=== PATIENT | female | born 1995 | race Caucasian/White ===

== ENCOUNTER 2019-08-16 12:24 | Emergency (ER) | payer SELFPAY ==
--- NOTE | 2019-08-16 12:30 | EDM.PDOC ---
ED HPI GENERAL MEDICAL PROBLEM - General Chief Complaint: Genitourinary Problem Stated Complaint: KIDNEY Time Seen by Provider: 08/16/19 12:25 Source of Information: Reports: Patient History Limitations: Reports: No Limitations - History of Present Illness INITIAL COMMENTS - FREE TEXT/NARRATIVE: HISTORY AND PHYSICAL: History of present illness: Patient is a 24-year-old female who presents to the emergency room today with complaints of left flank pain and dysuria. She states there is a chance of . Denies any vaginal bleeding, discharge or concerns of STDs. Patient denies any fever, chills, headache, change in vision, syncope or near syncope. Denies any chest pain, back pain, shortness of breath or cough. Denies any abdominal pain, nausea, vomiting, diarrhea, or constipation. Has not noted any blood in urine or stool. Patient has been eating and drinking appropriately. Review of systems: As per history of present illness and below otherwise all systems reviewed and negative. Past medical history: As per history of present illness and as reviewed below otherwise noncontributory. Surgical history: As per history of present illness and as reviewed below otherwise noncontributory. Social history: See social history for further information Family history: As per history of present illness and as reviewed below otherwise noncontributory. Physical exam: General: Well-developed and well-nourished 24-year-old female. Alert and oriented. Nontoxic appearing and in no acute distress. HEENT: Atraumatic, normocephalic, pupils equal and reactive bilaterally, negative for conjunctival pallor or scleral icterus, mucous membranes moist, trachea midline. No drooling or trismus noted. No meningeal signs. No hot potato voice noted. Lungs: Clear to auscultation, breath sounds equal bilaterally, chest nontender. Heart: S1S2, regular rate and rhythm without overt murmur Abdomen: Soft, nondistended, nontender. Negative for masses or hepatosplenomegaly. Mild left-sided costovertebral tenderness. Pelvis: Stable nontender. Skin: Intact, warm, dry. No lesions or rashes noted. Extremities: Atraumatic, moves all extremities per self without difficulty or deficits, ambulatory. Neurovascular unremarkable. Neuro: Awake, alert, oriented. Cranial nerves II through XII unremarkable. Cerebellum unremarkable. Motor and sensory unremarkable throughout. Exam nonfocal. Notes: Patient urine is normal. Due to her symptoms and dysuria we'll give her a short course of Cipro. Encouraged her to follow-up with her primary care provider for further evaluation and management if discomfort continues. Supportive care measures were reviewed and discussed. Voices understanding and is agreeable to plan of care. Denies any further questions or concerns at this time. Diagnostics: UA, hCG U Therapeutics: None Prescription: Cipro 250 BID x 3 days Impression: Dysuria Plan: 1. Please use Tylenol and/or Ibuprofen as needed for pain and fever management. 2. Get plenty of Rest. Encourage fluids to prevent dehydration. 3. Please follow up with your primary care provider. Return to the ED as needed as discussed. Definitive disposition and diagnosis as appropriate pending reevaluation and review of above. left side Pain Score (Numeric/FACES): 3 - Related Data Allergies Allergy/AdvReac Type Severity Reaction Status Date / Time adhesive Allergy Blisters Verified 05/26/17 18:37 MDT BANDAIDES Allergy Severe Burning Uncoded 05/26/17 18:37 MDT Home Meds: Home Meds Ciprofloxacin HCl [Cipro] 250 mg PO BID 3 Days #6 tablet 08/16/19 [Rx] Phenazopyridine HCl [Pyridium] 100 mg PO TID 2 Days #6 tablet 08/16/19 [Rx] Past Medical History - Past Health History Medical/Surgical History: Denies Medical/Surgical History HEENT History: Reports: Hard of Hearing, Other (See Below) Other HEENT History: right ear drum ruptured. 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 ED EXAM, RENAL/ - Physical Exam Exam: See Below (See dictation) Course - Vital Signs Last Recorded V/S: Last Vital Signs Temp 96.3 F 12/26/19 12:30 Pulse 87 08/16/19 12:30 Resp 16 08/16/19 12:30 BP 126/81 08/16/19 12:30 Pulse Ox 95 08/16/19 12:30 - Orders/Labs/Meds Labs: Laboratory Tests 08/16/19 08/16/19 Range/Units 12:30 12:30 Urine Color YELLOW Urine Appearance CLEAR Urine pH 6.5 (5.0-8.0) Ur Specific [place] 1.010 (1.001-1.035) Urine Protein NEGATIVE (NEGATIVE) mg/dL Urine Glucose (UA) NEGATIVE (NEGATIVE) mg/dL Urine Ketones NEGATIVE (NEGATIVE) mg/dL Urine Occult Blood NEGATIVE (NEGATIVE) Urine Nitrite NEGATIVE (NEGATIVE) Urine Bilirubin NEGATIVE (NEGATIVE) Urine Urobilinogen 0.2 (<2.0) EU/dL Ur Leukocyte Esterase NEGATIVE (NEGATIVE) Urine HCG, Qual NEGATIVE (NEGATIVE) Departure - Departure Time of Disposition: 13:06 Disposition: Home, Self-Care 01 Clinical Impression: Dysuria - Discharge Information Prescriptions: Ciprofloxacin HCl [Cipro] 250 mg PO BID 3 Days #6 tablet Phenazopyridine HCl [Pyridium] 100 mg PO TID 2 Days #6 tablet Instructions: Dysuria Forms: ED Department Discharge Additional Instructions: The following information is given to patients seen in the emergency department who are being discharged to home. This information is to outline your options for follow-up care. We provide all patients seen in our emergency department with a follow-up referral. The need for follow-up, as well as the timing and circumstances, are variable depending upon the specifics of your emergency department visit. If you don't have a primary care physician on staff, we will provide you with a referral. We always advise you to contact your personal physician following an emergency department visit to inform them of the circumstance of the visit and for follow-up with them and/or the need for any referrals to a consulting specialist. The emergency department will also refer you to a specialist when appropriate. This referral assures that you have the opportunity for follow-up care with a specialist. All of these measure are taken in an effort to provide you with optimal care, which includes your follow-up. Under all circumstances we always encourage you to contact your private physician who remains a resource for coordinating your care. When calling for follow-up care, please make the office aware that this follow-up is from your recent emergency room visit. If for any reason you are refused follow-up, please contact the [facility] Emergency Department at and asked to speak to the emergency department charge nurse. [facility] Primary Care [address] [place] [address] [facility] [address] [place] [id number] 1. Please use Tylenol and/or Ibuprofen as needed for pain and fever management. 2. Get plenty of Rest. Encourage fluids to prevent dehydration. 3. Please follow up with your primary care provider. Return to the ED as needed as discussed. Sepsis Event Note - Focused Exam Vital Signs: Vital Signs Temp Pulse Resp BP Pulse Ox 08/16/19 12:30 96.3 F 87 16 126/81 95 Date Exam was Performed: 08/16/19 Time Exam was Performed: 13:04
[2019-08-16 12:34] VITALS: BP 126/81
[2019-08-16 13:37] VITALS: PULSE 85
== END 2019-08-16 13:36 | disposition home or self-care (01) ==
LOC: MW.ED 12:24
DX: R30.0 Dysuria (principal); Z91.048 Other nonmedicinal substance allergy status
CPT/HCPCS: 81003; 81025; 99283; 99284

== ENCOUNTER 2020-04-27 12:49 | Emergency (ER) | payer MEDICAID, OTHER ==
[2020-04-27 13:14] VITALS: BP 118/75; PULSE 76
--- NOTE | 2020-04-27 13:38 | EDM.PDOC ---
ED HPI GENERAL MEDICAL PROBLEM - General Chief Complaint: Respiratory Problem Stated Complaint: SHORTNESS OF BREATH Time Seen by Provider: 04/27/20 12:57 Source of Information: Reports: Patient History Limitations: Reports: No Limitations - History of Present Illness INITIAL COMMENTS - FREE TEXT/NARRATIVE: HISTORY AND PHYSICAL: History of present illness: Patient is a 24-year-old female who presents to the emergency room with her daughter with complaints of body aches, sore throat, cough and subjective fever x2 days. Mom states she is concerned that she and her daughter have COVID-19, as the child recently returned to school and the mother has been around people at work who she feels have been infected. Patient denies any headache, change in vision, syncope or near syncope. Denies any chest pain, back pain, shortness of breath, abdominal pain, nausea, vomiting, diarrhea, constipation or dysuria. Patient has been eating and drinking appropriately. Review of systems: As per history of present illness and below otherwise all systems reviewed and negative. Past medical history: As per history of present illness and as reviewed below otherwise noncontributory. Surgical history: As per history of present illness and as reviewed below otherwise noncontributory. Social history: See social history for further information Family history: As per history of present illness and as reviewed below otherwise noncontributory. Physical exam: General: Well developed and well nourished 24 year old female. Alert and orientated x 3. Nontoxic in appearance and in no acute distress. Vital signs are stable and have been reviewed by me. Nursing notes were reviewed. HEENT: Atraumatic, normocephalic, pupils equal and reactive bilaterally, negative for conjunctival pallor or scleral icterus, mucous membranes moist, TMs normal bilaterally, throat clear, neck supple, nontender, trachea midline. No drooling or trismus noted. No meningeal signs. No hot potato voice noted. Lungs: Clear to auscultation, breath sounds equal bilaterally, chest nontender. Normal work of breathing, no accessory muscles used. Heart: S1S2, regular rate and rhythm without overt murmur Abdomen: Soft, nondistended, nontender. Skin: Intact, warm, dry. No lesions or rashes noted. Hematologic: No petechiae or purpra. Mucosa appropriate color and normal nail bed color and refill. Extremities: Atraumatic, moves all extremities per self without difficulty or deficits, negative for cords or calf pain. Neurovascular unremarkable. Neuro: Awake, alert, oriented. Cranial nerves II through XII unremarkable. Cerebellum unremarkable. Motor and sensory unremarkable throughout. Exam nonfocal. Notes: Negative COVID screening. Upon reevaluation she is appropriate for discharge. Vital signs are stable. We discussed signs and symptoms that would prompt them to return to the Emergency Department. Medication, follow up and supportive care measures were reviewed and discussed. Voices understanding and is agreeable to plan of care. Denies any further questions or concerns at this time. Diagnostics: COVID Therapeutics: None Prescription: None Impression: Viral upper respiratory illness Plan: 1. Your COVID testing is negative. Please use Tylenol and/or Ibuprofen as needed for pain and fever management. 2. Get plenty of Rest. Encourage fluids to prevent dehydration. 3. Please follow up with your primary care provider. Return to the ED as needed as discussed. Definitive disposition and diagnosis as appropriate pending reevaluation and review of above. Throat Pain Score (Numeric/FACES): 3 - Related Data Allergies Allergy/AdvReac Type Severity Reaction Status Date / Time adhesive Allergy Blisters Verified 04/27/20 13:05 BANDAIDES Allergy Severe Burning Uncoded 04/27/20 13:05 Home Meds: Home Meds . [No Known Home Meds] 04/27/20 [History] Past Medical History - Past Health History Medical/Surgical History: Denies Medical/Surgical History HEENT History: Reports: Hard of Hearing, Other (See Below) Other HEENT History: right ear drum ruptured. 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 ED EXAM, GENERAL - Physical Exam Exam: See Below (See dictation) Course - Vital Signs Last Recorded V/S: Last Vital Signs Temp 97.7 F 04/27/20 13:06 Pulse 76 04/27/20 13:06 Resp 16 04/27/20 13:06 BP 118/75 04/27/20 13:06 Pulse Ox 98 04/27/20 13:06 - Orders/Labs/Meds Labs: Laboratory Tests 04/27/20 Range/Units 13:16 COVID-19 (ALANNA) NEGATIVE (NEGATIVE) Departure - Departure Time of Disposition: 14:03 Disposition: Home, Self-Care 01 Clinical Impression: Viral upper respiratory illness - Discharge Information Instructions: Upper Respiratory Infection, Adult, [id number] Referrals: PCP,None [Primary Care Provider] - Forms: ED Department Discharge Additional Instructions: The following information is given to patients seen in the emergency department who are being discharged to home. This information is to outline your options for follow-up care. We provide all patients seen in our emergency department with a follow-up referral. The need for follow-up, as well as the timing and circumstances, are variable depending upon the specifics of your emergency department visit. If you don't have a primary care physician on staff, we will provide you with a referral. We always advise you to contact your personal physician following an emergency department visit to inform them of the circumstance of the visit and for follow-up with them and/or the need for any referrals to a consulting specialist. The emergency department will also refer you to a specialist when appropriate. This referral assures that you have the opportunity for follow-up care with a specialist. All of these measure are taken in an effort to provide you with optimal care, which includes your follow-up. Under all circumstances we always encourage you to contact your private physician who remains a resource for coordinating your care. When calling for follow-up care, please make the office aware that this follow-up is from your recent emergency room visit. If for any reason you are refused follow-up, please contact the [facility] Emergency Department at and asked to speak to the emergency department charge nurse. [facility] Primary Care [address] [place] [id number] [facility] [address] [place] [address] Thank you for choosing the [facility] emergency department in [place] for your medical needs today. It was a pleasure caring for you. Today you were seen in the emergency department for viral illness. 1. Your COVID testing is negative. Please use Tylenol and/or Ibuprofen as needed for pain and fever management. 2. Get plenty of Rest. Encourage fluids to prevent dehydration. 3. Please follow up with your primary care provider. Return to the ED as needed as discussed. Sepsis Event Note (ED) - Evaluation Sepsis Screening Result: No Definite Risk - Focused Exam Vital Signs: Vital Signs Temp Pulse Resp BP Pulse Ox 04/27/20 13:06 97.7 F 76 16 118/75 98
== END 2020-04-27 14:28 | disposition home or self-care (01) ==
LOC: MW.ED 12:49
DX: J06.9 Acute upper respiratory infection, unspecified (principal); Z20.828 Contact with and (suspected) exposure to other viral communicable diseases; Z91.048 Other nonmedicinal substance allergy status
CPT/HCPCS: 99283; U0002

== ENCOUNTER 2020-08-30 12:53 | Emergency (ER) | payer MEDICAID ==
--- NOTE | 2020-08-30 13:32 | EDM.PDOC ---
ED HPI GENERAL MEDICAL PROBLEM - General Chief Complaint: Chest Pain Stated Complaint: CHEST PAIN Time Seen by Provider: 08/30/20 12:56 Source of Information: Reports: Patient History Limitations: Reports: No Limitations - History of Present Illness INITIAL COMMENTS - FREE TEXT/NARRATIVE: Patient is a 25-year-old female who presents today for left-sided chest pain for the past 2 days. Patient states is kind of achy pain and radiates to her left arm. Patient has a pain started as she has caffeine and drinks more throughout the day. Nothing makes the pain better. Patient not take any medication for the pain at home. Patient denies any nausea vomiting shortness of breath or leg swelling. Patient denies any recent travels or any previous cardiac issues. Left chest Pain Score (Numeric/FACES): 6 - Related Data Allergies Allergy/AdvReac Type Severity Reaction Status Date / Time adhesive Allergy Blisters Verified 08/30/20 13:13 BANDAIDES Allergy Severe Burning Uncoded 08/30/20 13:13 Home Meds: Home Meds . [No Known Home Meds] 04/27/20 [History] Past Medical History - Past Health History Medical/Surgical History: Denies Medical/Surgical History HEENT History: Reports: Hard of Hearing, Other (See Below) Other HEENT History: right ear drum ruptured. 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: vaginal delliveries Psychiatric History: Reports: Anxiety, Depression - Infectious Disease History Infectious Disease History: Reports: None - Past Surgical History HEENT Surgical History: Reports: Oral Surgery GI Surgical History: Reports: None - History Comment History Comment: celexa- but hasn't had in 1-2 weeks Social & Family History - Family History Family Medical History: No Pertinent Family History - Tobacco Use Tobacco Use Status *Q: Never Tobacco User - Caffeine Use Caffeine Use: Reports: Energy Drinks Other Caffeine Use: 1 drink per day of coffee or redbull - Recreational Drug Use Recreational Drug Use: No ED ROS GENERAL - Review of Systems Review Of Systems: See Below Constitutional: Reports: No Symptoms HEENT: Reports: No Symptoms Respiratory: Reports: No Symptoms Cardiovascular: Reports: No Symptoms Endocrine: Reports: No Symptoms GI/Abdominal: Reports: No Symptoms : Reports: No Symptoms Musculoskeletal: Reports: No Symptoms Skin: Reports: No Symptoms Neurological: Reports: No Symptoms Psychiatric: Reports: No Symptoms Hematologic/Lymphatic: Reports: No Symptoms Immunologic: Reports: No Symptoms ED EXAM, GENERAL - Physical Exam Exam: See Below Exam Limited By: No Limitations General Appearance: Alert, WD/WN, No Apparent Distress Eye Exam: Bilateral Eye: EOMI, PERRL Head: Atraumatic Neck: Supple Respiratory/Chest: No Respiratory Distress, Lungs Clear, Normal Breath Sounds Cardiovascular: Regular Rate, Rhythm GI/Abdominal: Normal Bowel Sounds, Soft, Non-Tender Back Exam: Normal Inspection, Full Range of Motion Neurological: Alert, Oriented, CN II-XII Intact #1 Interpretation EKG Date: 08/30/20 Time: 13:07 Rhythm: NSR Rate (Beats/Min): 86 ST-T: Normal Course - Vital Signs Last Recorded V/S: Last Vital Signs Temp 97.1 F 08/30/20 13:14 Pulse 70 08/30/20 14:14 Resp 16 08/30/20 14:14 BP 109/75 08/30/20 14:14 Pulse Ox 95 08/30/20 14:14 - Orders/Labs/Meds Orders: Active Orders 24 hr Category Date Time Status EKG Documentation Completion [RC] STAT Care 08/30/20 13:15 Active Labs: Laboratory Tests 08/30/20 08/30/20 08/30/20 Range/Units 13:19 13:19 13:45 WBC 9.42 (4.0-11.0) K/uL RBC 4.64 (4.30-5.90) M/uL Hgb 14.0 (12.0-16.0) g/dL Hct 42.3 (36.0-46.0) % MCV 91.2 (80.0-98.0) fL MCH 30.2 (27.0-32.0) pg MCHC 33.1 (31.0-37.0) g/dL RDW Std Deviation 42.3 (28.0-62.0) fl RDW Coeff of Matt 13 (11.0-15.0) % Plt Count 279 (150-400) K/uL MPV 10.80 (7.40-12.00) fL Neut % (Auto) 52.4 (48.0-80.0) % Lymph % (Auto) 38.5 (16.0-40.0) % Cross % (Auto) 7.0 (0.0-15.0) % Eos % (Auto) 1.7 (0.0-7.0) % Baso % (Auto) 0.4 (0.0-1.5) % Neut # (Auto) 4.9 (1.4-5.7) K/uL Lymph # (Auto) 3.6 H (0.6-2.4) K/uL Cross # (Auto) 0.7 (0.0-0.8) K/uL Eos # (Auto) 0.2 (0.0-0.7) K/uL Baso # (Auto) 0.0 (0.0-0.1) K/uL Nucleated RBC % 0.0 /100WBC Nucleated RBCs # 0 K/uL Sodium 141 (136-145) mmol/L Potassium 4.0 (3.5-5.1) mmol/L Chloride 105 (98-107) mmol/L Carbon Dioxide 26.7 (21.0-32.0) mmol/L BUN 12 (7.0-18.0) mg/dL Creatinine 0.8 (0.6-1.0) mg/dL Est Cr Clr Drug Dosing 79.71 mL/min Estimated GFR (MDRD) > 60.0 ml/min Glucose 82 (74-106) mg/dL Calcium 8.9 (8.5-10.1) mg/dL Creatine Kinase 129 (26-308) U/L Troponin I < 0.050 (0.000-0.056) ng/mL Urine HCG, Qual NEGATIVE (NEGATIVE) - Re-Assessments/Exams Free Text/Narrative Re-Assessment/Exam: 08/30/20 14:20 trops are negative likely muscle skeletal pain will be discharged home to follow-up with primary care physician. Departure - Departure Time of Disposition: 14:21 Disposition: Home, Self-Care 01 Condition: Good Clinical Impression: Chest pain - Discharge Information *PRESCRIPTION DRUG MONITORING PROGRAM REVIEWED*: Not Applicable *COPY OF PRESCRIPTION DRUG MONITORING REPORT IN PATIENT LAURA: Not Applicable Instructions: Nonspecific Chest Pain, Adult Referrals: PCP,None [Primary Care Provider] - Forms: ED Department Discharge Additional Instructions: The following information is given to patients seen in the emergency department who are being discharged to home. This information is to outline your options for follow-up care. We provide all patients seen in our emergency department with a follow-up referral. The need for follow-up, as well as the timing and circumstances, are variable depending upon the specifics of your emergency department visit. If you don't have a primary care physician on staff, we will provide you with a referral. We always advise you to contact your personal physician following an emergency department visit to inform them of the circumstance of the visit and for follow-up with them and/or the need for any referrals to a consulting specialist. The emergency department will also refer you to a specialist when appropriate. This referral assures that you have the opportunity for follow-up care with a specialist. All of these measure are taken in an effort to provide you with opti mal care, which includes your follow-up. Under all circumstances we always encourage you to contact your private physician who remains a resource for coordinating your care. When calling for follow-up care, please make the office aware that this follow-up is from your recent emergency room visit. If for any reason you are refused follow-up, please contact the [facility] Emergency Department at and asked to speak to the emergency department charge nurse. Please follow up with your primary care physician. If you do not have a primary care physician, see below: [facility] Primary Care [address] [place] [id number] [facility] [address] [place] [address] [facility] [address] [place] [id number] You likely have muscle skeletal pain. We would like you to follow-up with primary care physician and possibly see cardiology we have provided both numbers above. Any more increased pain shortness of breath please return to ED. Sepsis Event Note (ED) - Evaluation Sepsis Screening Result: No Definite Risk - Focused Exam Vital Signs: Vital Signs Temp Pulse Resp BP Pulse Ox 08/30/20 14:14 70 16 109/75 95 08/30/20 13:14 97.1 F 88 18 138/78 97 - My Orders Last 24 Hours: My Active Orders 08/30/20 13:15 EKG Documentation Completion [RC] STAT - Assessment/Plan Last 24 Hours: My Active Orders 08/30/20 13:15 EKG Documentation Completion [RC] STAT Assessment:: 25-year-old female presents today for left-sided chest pain. Patient has a heart score of 0. Will obtain tropes EKG labs and reassess. Likely be muscular pain.
[2020-08-30 13:46] LABS: BLOOD UREA NITROGEN,BUN 12 mg/dL (7.0-18.0); CARBON DIOXIDE,CO2 26.7 mmol/L (21.0-32.0); CHLORIDE,CL 105 mmol/L (98-107); GLUCOSE RANDOM 82 mg/dL (74-106); SODIUM,NA 141 mmol/L (136-145)
--- NOTE | 2020-08-30 15:00 | CR ---
Indication: Left-sided chest pain. Technique: PA and lateral views of the chest. Comparison: None Findings: The heart is normal in size. The lungs are clear. No infiltrate, pleural effusion, or pneumothorax is identified. Impression: No acute cardiopulmonary process Dictated by Mariaa Issa MD @ Aug 30 2020 2:58PM Signed by Dr. Mariaa Issa @ Aug 30 2020 2:59PM
[2020-08-30 15:21] VITALS: BP 117/69; PULSE 81
== END 2020-08-30 15:15 | disposition home or self-care (01) ==
LOC: MW.ED 12:53
DX: R07.9 Chest pain, unspecified (principal); Z88.8 Allergy status to other drugs, medicaments and biological substances
CPT/HCPCS: 36415; 71046; 71046-26; 80048; 81025; 82550; 84484; 85025; 93005; 93010; 99284; 99285-25

== ENCOUNTER 2020-11-17 11:20 | Emergency (ER) | payer MEDICAID ==
[2020-11-17 11:42] VITALS: BP 144/78; PULSE 100
[2020-11-17] MEDS ORDERED: Acetaminophen 500 MG Tab PO ONE (12:14)
--- NOTE | 2020-11-17 12:16 | EDM.PDOC ---
ED HPI GENERAL MEDICAL PROBLEM - General Chief Complaint: ENT Problem Stated Complaint: RT SIDE OF NECK PAIN Time Seen by Provider: 11/17/20 11:23 - History of Present Illness INITIAL COMMENTS - FREE TEXT/NARRATIVE: CHIEF COMPLAINT(S): Right ear and jaw pain HISTORY OF PRESENT ILLNESS: This is a 25-year-old woman with a past medical history of obesity who comes to the emergency department with a chief complaint of right ear and jaw pain. The patient states that 2 weeks ago she got her left molar removed and had resultant dry socket and was started on amoxicillin. She states that for the last 2 days she has been experiencing right ear and jaw pain. She states that her pain is rated 6 out of 10 is located just in her right ear and her job right anterior to the ear. She states that she feels there is mild swelling but denies any trouble swallowing, trouble speaking, or drooling. She states that initially started with a right ear tickle and then she cleaned it and then she did just started to have pain in the right side. She describes the pain as throbbing. She states that she has been taking ibuprofen and amoxicillin as prescribed. She denies any fever, chills, vision changes, diplopia, loss of vision or dizziness. She states she does not know the dose of her amoxicillin but she is taking approximately 5 to 8 tablets of ibuprofen every 3-4 hours. In addition she states that when she opens her mouth she feels a clicking and popping out of her right jaw. She denies any history of TMJ. REVIEW OF SYSTEMS: Constitutional: Denies fever, chills. Eyes: Denies eye pain Ears, Nose, Mouth, & Throat: Positive for right ear and right jaw pain Cardiovascular: Denies chest pain Respiratory: Denies shortness of breath Gastrointestinal: Denies Nausea, vomiting, diarrhea, hematochezia. Genitourinary: Denies hematuria Skin:Denies a rash MSK: Denies joint pain Neurological: Denies blurred vision Psychiatric: Denies depression PAST MEDICAL HISTORY: As per history of present illness and as reviewed below otherwise noncontributory. SURGICAL HISTORY: As per history of present illness and as reviewed below otherwise noncontributory. SOCIAL HISTORY: As per history of present illness and as reviewed below otherwise noncontributory. FAMILY HISTORY: As per history of present illness and as reviewed below otherwise noncontributory. EXAMINATION OF ORGAN SYSTEMS/BODY AREAS: Constitutional: Blood pressure is 144/78, heart rate 100, respiratory rate 18 with an oxygen saturation 97% on room air. Temperature 37.1 General: Overall well-appearing woman who is in no acute distress. Psychiatric: Appropriate mood and affect. Eyes: No scleral icterus or conjunctival erythema pupils are equal round reactive to light. Extraocular movements intact. ENMT: Moist mucous membranes. No pharyngeal erythema there was no gum swelling or erythema in the oropharynx. Uvula was midline. No drooling. No trismus. The right tympanic membrane is bulging with erythema and effusion. The external auditory canal is mildly erythematous with some papules. No purulent drainage noted. There is no posterior auricular swelling or tenderness. No mastoid tenderness. There is mild tenderness along the anterior portion of the right ear along the TMJ joint. Cardiovascular: Regular, rate, and rhythm. No gallops, murmurs, or rubs. Bilateral upper extremity pulses symmetric and intact. No peripheral edema. No JVD. Respiratory: Lungs clear to auscultation bilaterally. No wheezes, rales, or rhonchi. Gastrointestinal: Soft, non-tender, non-distended. Normoactive bowel sounds Genitourinary: No suprapubic tenderness Musculoskeletal: Normal range of motion. Skin: No lesions or abrasions. Neurological: Alert, GCS 15 MEDICAL DECISION MAKING AND COURSE IN THE ED WITH INTERPRETATION/REVIEW OF DIAGNOSTIC STUDIES: This is a 25-year-old woman with a past medical history of obesity who comes to the emergency department with right ear pain and jaw pain who is on amoxicillin taking excessive doses of ibuprofen. At this time I do believe the patient has otitis externa and otitis media. I discussed with her that I be providing her with amoxicillin clavulanic acid and ofloxacin drops. I discussed with her for pain management I would like to provide her a Toradol shot. She states that she does not like shots and is okay with her pain. I did offer her Tylenol. She was amenable to Tylenol. I discussed with her that taking excess is doses of ibuprofen is not going to help the pain and only likely going to cause ulcers and GI upset. I did discuss with her a pain regimen plan. She is to follow-up with the primary care physician. I do not believe any labs or imaging are indicated at this time. DISPOSITION: The patient was discharged home in stable condition. The patient will follow up with primary care physician within 1 week CONDITION: Fair PROCEDURES: None FINAL IMPRESSION(S)/DIAGNOSES: 1. Acute right otitis media with effusion 2. Acute right otitis externa 3. Acute likely TMJ syndrome Saad Ivan M.D. right ear/right side of neck Pain Score (Numeric/FACES): 6 - Related Data Allergies Allergy/AdvReac Type Severity Reaction Status Date / Time adhesive Allergy Blisters Verified 11/17/20 11:38 BANDAIDES Allergy Severe Burning Uncoded 11/17/20 11:38 Home Meds: Home Meds Amoxicillin mg PO TID 11/17/20 [History] Amoxicillin/Potassium Clav [Amox Tr-K Clv 875-125 mg Tab] 1 each PO BID #14 tablet 11/17/20 [Rx] Ibuprofen 1,000 mg PO ASDIRECTED PRN 11/17/20 [History] Ofloxacin 10 ml OT DAILY #70 drops 11/17/20 [Rx] Past Medical History - Past Health History Medical/Surgical History: Denies Medical/Surgical History HEENT History: Reports: Hard of Hearing, Other (See Below) Other HEENT History: right ear drum ruptured. Cardiovascular History: Reports: None Respiratory History: Reports: None Gastrointestinal History: Reports: GERD CLERICAL DENTIST ASSISTANT History: Reports: Other CLERICAL DENTIST ASSISTANT History: vaginal delliveries Psychiatric History: Reports: Anxiety, Depression - Infectious Disease History Infectious Disease History: Reports: Chicken Pox - Past Surgical History HEENT Surgical History: Reports: Oral Surgery GI Surgical History: Reports: None - History Comment History Comment: celexa- but hasn't had in 1-2 weeks Social & Family History - Family History Family Medical History: No Pertinent Family History - Tobacco Use Tobacco Use Status *Q: Current Every Day Tobacco User Years of Tobacco use: 5 Packs/Tins Daily: 1 - Caffeine Use Caffeine Use: Reports: Energy Drinks, Tea Other Caffeine Use: 1 drink per day of coffee or redbull - Recreational Drug Use Recreational Drug Use: No ED ROS GENERAL - Review of Systems Review Of Systems: See Below ED EXAM, GENERAL - Physical Exam Exam: See Below Course - Vital Signs Last Recorded V/S: Last Vital Signs Temp 37.1 C 11/17/20 11:39 Pulse 100 11/17/20 11:39 Resp 18 11/17/20 11:39 BP 144/78 H 11/17/20 11:39 Pulse Ox 97 11/17/20 11:39 - Orders/Labs/Meds Meds: Medications Discontinued Medications Generic Name Dose Route Start Last Admin Trade Name [place] PRN Reason Stop Dose Admin Acetaminophen 1,000 mg 11/17/20 12:14 11/17/20 12:27 Acetaminophen 500 Mg Tab PO 11/17/20 12:15 1,000 mg ONETIME ONE Administration Departure - Departure Time of Disposition: 12:14 Disposition: Home, Self-Care 01 Condition: Fair Clinical Impression: Otitis externa, Otitis media, TMJ (temporomandibular joint syndrome) - Discharge Information *PRESCRIPTION DRUG MONITORING PROGRAM REVIEWED*: No *COPY OF PRESCRIPTION DRUG MONITORING REPORT IN PATIENT LAURA: No Prescriptions: Amoxicillin/Potassium Clav [Amox Tr-K Clv 875-125 mg Tab] 1 each PO BID #14 tablet Ofloxacin 10 ml OT DAILY #70 drops Instructions: Otitis Externa, [id number], Otitis Media, Adult, [id number], Temporomandibular Joint Syndrome Referrals: PCP,None [Primary Care Provider] - Forms: ED Department Discharge Additional Instructions: You evaluate today on an emergent basis. At this time you do have evidence of an infection of your ear and your ear canal. Please use the antibiotics as prescribed. In addition you may have additional symptoms from TMJ syndrome. I recommend the use of Tylenol and Motrin for pain relief. Please ice the area 20 minutes 4 times a day. Please do not exceed 800 mg 3 times a day of Motrin as this can cause stomach ulcers. Please utilize the pain plan as below. Please follow-up with your primary care physician within 3 to 5 days. Return for any new or worsening symptoms such as trouble swallowing, drooling, inability to open mouth, fever or worsening swelling of the right side of the neck. Please use: Tylenol 500-1000mg every 6 hours (DO NOT TAKE MORE THAN 4000mg in 1 day) Ibuprofen 400mg every 6 hours (Take with food as it can cause ulcers, GI upset) Example schedule: 8:00 AM (Tylenol 500-1000mg) 11:00 AM (Ibuprofen 400mg) 2:00 PM (Tylenol 500-1000mg) 5:00 PM (Ibuprofen 400mg) Ice the area 20 minutes 4 times per day [facility] [address] [place] [address] [facility] [address] [place] [address] The patient is informed of any results of their evaluation and diagnostic workup and all questions are answered. They are given discharge instructions and return precautions. The patient is stable for discharge. The patient states they understand and agree with the plan and that they will return if their symptoms get worse or if they have any new concerns. The following information is given to patients seen in the emergency department who are being discharged to home. This information is to outline your options for follow-up care. We provide all patients seen in our emergency department with a follow-up referral. The need for follow-up, as well as the timing and circumstances, are variable depending upon the specifics of your emergency department visit. If you don't have a primary care physician on staff, we will provide you with a referral. We always advise you to contact your personal physician following an emergency department visit to inform them of the circumstance of the visit and for follow-up with them and/or the need for any referrals to a consulting specialist. The emergency department will also refer you to a specialist when appropriate. This referral assures that you have the opportunity for follow-up care with a specialist. All of these measure are taken in an effort to provide you with optimal care, which includes your follow-up. Under all circumstances we always encourage you to contact your private physician who remains a resource for coordinating your care. When calling for follow-up care, please make the office aware that this follow-up is from your recent emergency room visit. If for any reason you are refused follow-up, please contact the Emergency Department at and asked to speak to the emergency department charge nurse. Sepsis Event Note (ED) - Evaluation Sepsis Screening Result: No Definite Risk
== END 2020-11-17 12:29 | disposition home or self-care (01) ==
LOC: MW.ED 11:20
DX: H65.191 Other acute nonsuppurative otitis media, right ear (principal); H60.501 Unspecified acute noninfective otitis externa, right ear; M26.621 Arthralgia of right temporomandibular joint; Z72.0 Tobacco use; Z91.048 Other nonmedicinal substance allergy status
CPT/HCPCS: 99283; A9270

== ENCOUNTER 2022-04-20 13:57 | Emergency (ER) | payer MEDICAID ==
[2022-04-20 15:40] VITALS: BP 128/97; PULSE 91
== END 2022-04-20 17:29 | disposition home or self-care (01) ==
LOC: MW.ED 13:57
DX: J02.9 Acute pharyngitis, unspecified (principal); Z20.822 Contact with and (suspected) exposure to COVID-19; Z91.048 Other nonmedicinal substance allergy status
CPT/HCPCS: 87651-QW; 99283; U0002

== ENCOUNTER 2022-04-21 16:58 | Emergency (ER) | payer MEDICAID ==
[2022-04-21] MEDS ORDERED: Acetaminophen 500 MG Tab PO ONE (18:10)
[2022-04-21] MEDS ORDERED: Sodium Chloride 0.9% 1,000 ML IV ONE (18:10)
[2022-04-21] MEDS ORDERED: Albuterol/Ipratropium 3.0-0.5 MG/3 ML Neb Soln NEB ONE (18:37)
[2022-04-21] MEDS: Ketorolac 30 MG/ML SDV IVPUSH ONE ×2 (19:09→19:15)
[2022-04-21 19:11] LABS: CORONAVIRUS COVID-19 NAA POSITIVE (NEGATIVE); INFLUENZA A NAA NEGATIVE (NEGATIVE); INFLUENZA B NAA NEGATIVE (NEGATIVE)
[2022-04-21 19:27] LABS: CARBON DIOXIDE,CO2 23.8 mmol/L (21.0-32.0)
[2022-04-21 20:50] VITALS: BP 114/76; PULSE 91
== END 2022-04-21 20:50 | disposition home or self-care (01) ==
LOC: MW.ED 16:58
DX: U07.1 COVID-19 (principal); Z91.048 Other nonmedicinal substance allergy status
CPT/HCPCS: 0240U; 36415; 71045; 80053; 83605; 85025; 86140; 87040; 94640; 96360; 99285; A9270; J7030; 99284; J1885; J7620-GY

== ENCOUNTER 2022-04-22 08:36 | Emergency (ER) | payer MEDICAID ==
[2022-04-22] MEDS ORDERED: Sodium Chloride 0.9% 1,000 ML IV ONE (10:10)
[2022-04-22 15:28] VITALS: PULSE 70
== END 2022-04-22 10:35 | disposition home or self-care (01) ==
LOC: MW.ED 08:36
DX: U07.1 COVID-19 (principal); Z91.048 Other nonmedicinal substance allergy status
CPT/HCPCS: 99283; 99284

== ENCOUNTER 2022-04-24 12:37 | Emergency (ER) | payer MEDICAID ==
[2022-04-24] MEDS ORDERED: Albuterol 8 GM Inhaler INH STA (14:12)
[2022-04-24 14:17] VITALS: BP 132/72; PULSE 91
== END 2022-04-24 14:59 | disposition home or self-care (01) ==
LOC: MW.ED 12:37
DX: U07.1 COVID-19 (principal); Z91.048 Other nonmedicinal substance allergy status; Z79.899 Other long term (current) drug therapy
CPT/HCPCS: 99283; A9270

== ENCOUNTER 2022-12-11 10:28 | Emergency (ER) | payer MEDICAID ==
[2022-12-11] MEDS ORDERED: Dexamethasone 10 MG/ML SDV PO ONE (10:36)
[2022-12-11 10:59] VITALS: BP 121/83; PULSE 99
== END 2022-12-11 10:59 | disposition home or self-care (01) ==
LOC: MW.ED 10:28
DX: K12.2 Cellulitis and abscess of mouth (principal); J02.9 Acute pharyngitis, unspecified; Z91.048 Other nonmedicinal substance allergy status; Z79.899 Other long term (current) drug therapy
CPT/HCPCS: 99282; J8540; 99283